=== PATIENT | male | born 1955 | race Caucasian/White ===

== ENCOUNTER 2017-08-04 12:51 | Emergency (ER) | payer OTHER ==
[~2017-08-04] VITALS: Ht 175.3 cm; Wt 81.6 kg
[2017-08-04 13:31] VITALS: Ht 175.3 cm; Wt 81.6 kg
[2017-08-04 14:16] VITALS: BP 126/71
== END 2017-08-04 15:20 | disposition home or self-care (01) ==
LOC: ED 12:51
DX: J11.1 Influenza due to unidentified influenza virus with other respiratory manifestations (principal)
CPT/HCPCS: J7512; J7613; Q0092